=== PATIENT | male | born 1945 | race Caucasian/White ===

== ENCOUNTER → 2024-12-20 14:03 | Outpatient (BNVA) | payer OTHER, SELFPAY | PROVIDERS: Referring Provider Nurse Practitioner Family; Visit Provider Surgery | DX: R13.10 Dysphagia, unspecified (principal); R09.A2 Foreign body sensation, throat | CPT/HCPCS: 99204 ==

== ENCOUNTER 2025-01-25 07:18 | Day surgery (SDC) | payer OTHER, SELFPAY ==
[2025-01-25] MEDS: sodium chloride 0.9% 1,000 ML 15 ML IV (07:51)
[2025-01-25 08:01] VITALS: BP 151/94; PULSE 75; RESP 16; TEMP 36.6; O2SAT 95; BMI 31.6
--- NOTE | 2025-01-25 08:14 | ANES.PREANE2 ---
Pre-Anesthetic Assessment Height/Weight: Height 1.8 m Weight 102.965 kg Temp Pulse Resp BP Pulse Ox O2 Del Method 97.8 F 75 16 151/94 95 Room Air 01/25/25 08:01 01/25/25 08:01 01/25/25 08:01 01/25/25 08:01 01/25/25 08:01 01/25/25 08:01 Preop Diagnosis: dysphagia Operation Date: 01/25/25 09:15 Proposed Procedures p EGD Balloon Dilation [id number] G0105 R13.10 Z12.11(Not Applicable) - Junior Villar MD s Colonoscopy(Not Applicable) - Junior Villar MD Was Beta Gwen taken within 24 hours: N/A Was Clonidine taken within 24 hours: N/A Last intake: Intake Last Liquid Date 01/24/25 Last Liquid Time 21:00 Last Solid Date 01/23/25 Last Solid Time 19:00 Social No alcohol and No tobacco Exam alert and oriented x 3 Airway Submandibular: within normal limits Cervical ROM: within normal limits Mallampati: Class II Dentition: full Comments: Comments: missing teeth History/ROS No significant history except as noted Pulmonary Sleep Apnea No cpap CV/HEM Atrial Fibrillation (2013 had history of afib) and None reported None reported Hepatic None reported GI Gastroesophageal Reflux Disease Metabolic None reported Musc/skel 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 Neuropsych None reported Anesthetic Plan ASA status: 2 Anesthesia: MAC Risk of > 500 ml blood loss (7ml/kg in children): No Medications/Allergies Home Medications ?Medication ?Instructions ?Recorded ?Confirmed ?Last Taken ?Type aspirin 81 mg tablet,delayed 81 mg PO DAILY 12/20/24 01/25/25 01/21/25 History release (Adult Aspirin Regimen) omeprazole 20 mg capsule,delayed 20 mg PO DAILY 12/20/24 01/25/25 01/25/25 History release Allergies Allergy/AdvReac Type Severity Reaction Status Date / Time No Known Allergies Allergy Verified 01/23/25 09:12 Current Medications Generic Name Dose Route Start Last Admin Trade Name Freq PRN Reason Stop Dose Admin Sodium Chloride 1,000 mls @ 15 mls/hr 01/25/25 07:35 01/25/25 07:51 Sodium Chloride 0.9% IV 01/26/25 07:34 15 mls/hr .Q24H PRN Administration COLONOSCOPY FLUIDS PFSH Anesthesia Social History Smoking and tobacco/nicotine status: never used tobacco/nicotine
--- NOTE | 2025-01-25 08:51 | W.PM.OPSFHP ---
Same Day Surgery H&P Indication for Procedure/HPI DATE OF PROCEDURE: January 25, 2025 CHIEF COMPLAINT/INDICATIONFOR SURGICAL PROCEDURE: dysphagia and need for screening colonoscopy PREOP DIAGNOSIS: dysphagia PLANNED PROCEDURE: Operation Date: 01/25/25 09:15 Proposed Procedures p EGD Balloon Dilation [id number] G0105 R13.10 Z12.11(Not Applicable) - Junior Villar MD s Colonoscopy(Not Applicable) - Junior Villar MD dysphagia and need for screening colonoscopy Medications/Allergies* Home Medications ?Medication ?Instructions ?Recorded ?Confirmed ?Type aspirin 81 mg tablet,delayed 81 mg PO DAILY 12/20/24 01/25/25 History release (Adult Aspirin Regimen) omeprazole 20 mg capsule,delayed 20 mg PO DAILY 12/20/24 01/25/25 History release Allergies/Adverse Reactions Allergy/AdvReac Type Severity Reaction Status Date / Time No Known Allergies Allergy Verified 01/23/25 09:12 Current Medications: Generic Name Dose Route Start Last Admin Trade Name Freq PRN Reason Stop Dose Admin Sodium Chloride 1,000 mls @ 15 mls/hr 01/25/25 07:35 01/25/25 07:51 Sodium Chloride 0.9% IV 01/26/25 07:34 15 mls/hr .Q24H PRN Administration COLONOSCOPY FLUIDS Pertinent History/Comorbid Conditions* Social History Smoking and tobacco/nicotine status: never used tobacco/nicotine Pertinent Exam Findings alert, oriented x 3, clear to auscultation bilaterally and regular rate & rhythm Recommendations Surgery/Procedure today Coding Level of Care Code Acute Code for Chg Fwd
[2025-01-25 09:17] VITALS: BP 119/77; PULSE 63; RESP 18; TEMP 36.4; O2SAT 95
[2025-01-25 09:36] VITALS: BP 118/70; PULSE 63; RESP 18; TEMP 36.2; O2SAT 96
--- NOTE | 2025-01-25 09:49 | ANE.PACU2 ---
Inpatient post-anesthesia follow up: Airway intact: Yes Vital signs: Temperature 97.2 F Pulse Rate 63 Respiratory Rate 18 Blood Pressure 118/70 Pulse Oximetry 96 Oxygen Delivery Me thod Room Air Oxygen Flow Rate Fraction of Inspir ed Oxygen Hydration adequate: Yes Nausea and vomiting: No Pain level: 1 Mental status: Baseline
== END 2025-01-25 09:50 | disposition home or self-care (01) ==
PROVIDERS: PCP Nurse Practitioner Family; Visit Provider Surgery
PROC: 0DJD8ZZ Inspection of Lower Intestinal Tract, Via Natural or Artificial Opening Endoscopic (ICD-10-PCS; CPT 45378; 2025-01-25 09:15)
DX: Z12.11 Encounter for screening for malignant neoplasm of colon (principal); K57.30 Diverticulosis of large intestine without perforation or abscess without bleeding; K44.9 Diaphragmatic hernia without obstruction or gangrene; K29.50 Unspecified chronic gastritis without bleeding; K21.00 Gastro-esophageal reflux disease with esophagitis, without bleeding; K64.8 Other hemorrhoids; K64.4 Residual hemorrhoidal skin tags; Z86.79 Personal history of other diseases of the circulatory system; Z98.1 Arthrodesis status; Z79.899 Other long term (current) drug therapy; Z79.82 Long term (current) use of aspirin
CPT/HCPCS: 43239; 45378; 88305; 88342; J2704; J7030

== ENCOUNTER → 2025-02-14 10:01 | Outpatient (BNVA) | payer OTHER, SELFPAY | PROVIDERS: PCP Nurse Practitioner Family; Visit Provider Surgery | DX: Z09 Encounter for follow-up examination after completed treatment for conditions other than malignant neoplasm (principal) | CPT/HCPCS: 99213 ==